=== PATIENT | male | born 1990 | race African-American/Black ===

== ENCOUNTER 2016-05-31 11:48 | Emergency (ER) | payer OTHER ==
[~2016-05-31] VITALS: Ht 182.9 cm; Wt 108.9 kg
[2016-05-31] MEDS ORDERED: IV NORMAL SALINE 1000ML BAG 1,000 ML IV ONE (12:30)
[2016-05-31 12:33] LABS: BASO % 0 % (0-3); EOS % 1 % (0-3); HEMATOCRIT 53.5 % (39.0-53.0); HEMOGLOBIN 17.6 g/dL (13.0-17.5); LYMPH # 1.6 x10^3/uL (1.0-4.8); LYMPH % 12 % (24-48); MEAN CORPUSCULAR HEMOGLOBIN 29 pg (25-35); MEAN CORPUSCULAR HGB CONC 33 g/dL (31-37); MEAN CORPUSCULAR VOLUME 89 fL (79-100); MONO % 8 % (0-9); NEUT % 79 % (31-73); PLATELET COUNT 229 x10^3/uL (140-400); RED BLOOD COUNT 6.04 x10^6/uL (4.30-5.70); RED CELL DISTRIBUTION WIDTH 12.9 % (11.5-14.5); WHITE BLOOD COUNT 13.7 x10^3/uL (4.0-11.0)
--- NOTE | 2016-05-31 12:39 | PHYS DOC ---
Past Medical History Past Medical History: No Pertinent History Past Surgical History: No Surgical History Additional Information: 5 cigarettes daily Alcohol Use: None Drug Use: None Adult General Chief Complaint Chief Complaint: NAUSEA/VOMITING/DIARRHA HPI HPI 26-year-old male who's had some nausea and vomiting with diarrhea as well for the last 2-3 days. Patient states he has not really had a meal since Tuesday night. He states he has not been able to keep anything down. He states several his coworkers had similar symptoms. He denies any history of health problems. He does not appear to be in any acute distress Review of Systems Review of Systems Constitutional: Denies fever or chills [] Eyes: Denies change in visual acuity, redness, or eye pain [] HENT: Denies nasal congestion or sore throat [] Respiratory: Denies cough or shortness of breath [] Cardiovascular: No additional information not addressed in HPI [] GI: Denies abdominal pain, has nausea, has vomiting, bloody stools, denies diarrhea [] : Denies dysuria or hematuria [] Musculoskeletal: Denies back pain or joint pain [] Integument: Denies rash or skin lesions [] Neurologic: Denies headache, focal weakness or sensory changes [] Endocrine: Denies polyuria or polydipsia [] Current Medications Current Medications Current Medications Medications (Trade) Dose Ordered Sig/Rachael Start Time Stop Time Status Last Admin Dose Admin Ketorolac Tromethamine (Toradol) 30 mg 1X ONCE 05/31/16 12:45 05/31/16 12:46 DC 05/31/16 12:34 30 MG Ondansetron HCl (Zofran) 4 mg 1X ONCE 05/31/16 12:45 05/31/16 12:46 DC 05/31/16 12:35 4 MG Sodium Chloride (Iv Sodium Chloride 0.9% 1000ml Bag) 1,000 ml @ 1,000 mls/hr 1X ONCE 05/31/16 12:30 05/31/16 13:29 05/31/16 12:35 1,000 MLS/HR Allergies Allergies Allergies Coded Allergies Type Severity Reaction Last Updated Verified No Known Drug Allergies 05/31/16 No Physical Exam Physical Exam Constitutional: Well developed, well nourished, no acute distress, non-toxic appearance. [] HENT: Normocephalic, atraumatic, bilateral external ears normal, oropharynx moist, no oral exudates, nose normal. [] Eyes: PERRLA, EOMI, conjunctiva normal, no discharge. [] Neck: Normal range of motion, no tenderness, supple, no stridor. [] Cardiovascular:Heart rate regular rhythm, no murmur [] Lungs & Thorax: Bilateral breath sounds clear to auscultation [] Abdomen: Bowel sounds normal, soft, no tenderness, no masses, no pulsatile masses. [] Skin: Warm, dry, no erythema, no rash. [] Back: No tenderness, no CVA tenderness. [] Extremities: No tenderness, no cyanosis, no clubbing, ROM intact, no edema. [] Neurologic: Alert and oriented X 3, normal motor function, normal sensory function, no focal deficits noted. [] Psychologic: Affect normal, judgement normal, mood normal. [] Current Patient Data Vital Signs Vital Signs Date Time Temp Pulse Resp B/P Pulse Ox O2 Delivery O2 Flow Rate FiO2 05/31/16 12:27 83 133/81 Room Air 05/31/16 11:57 98.0 16 99 98.0 Lab Values Laboratory Tests Test 05/31/16 12:00 White Blood Count 13.7x10^3/uL (4.0-11.0) H Red Blood Count 6.04x10^6/uL (4.30-5.70) H Hemoglobin 17.6g/dL (13.0-17.5) H Hematocrit 53.5% (39.0-53.0) H Mean Corpuscular Volume 89fL (79-100) Mean Corpuscular Hemoglobin 29pg (25-35) Mean Corpuscular Hemoglobin Concent 33g/dL (31-37) Red Cell Distribution Width 12.9% (11.5-14.5) Platelet Count 229x10^3/uL (140-400) Neutrophils (%) (Auto) 79% (31-73) H Lymphocytes (%) (Auto) 12% (24-48) L Monocytes (%) (Auto) 8% (0-9) Eosinophils (%) (Auto) 1% (0-3) Basophils (%) (Auto) 0% (0-3) Neutrophils # (Auto) 10.8x10^3uL (1.8-7.7) H Lymphocytes # (Auto) 1.6x10^3/uL (1.0-4.8) Monocytes # (Auto) 1.1x10^3/uL (0.0-1.1) Eosinophils # (Auto) 0.1x10^3/uL (0.0-0.7) Basophils # (Auto) 0.0x10^3/uL (0.0-0.2) Sodium Level 141mmol/L (136-145) Potassium Level 4.1mmol/L (3.5-5.1) Chloride Level 102mmol/L (98-107) Carbon Dioxide Level 30mmol/L (21-32) Anion Gap 9 (6-14) Blood Urea Nitrogen 13mg/dL (8-26) Creatinine 1.1mg/dL (0.7-1.3) Estimated GFR (Cockcroft-Gault) 98.7 Glucose Level 99mg/dL (70-99) Calcium Level 9.7mg/dL (8.5-10.1) Laboratory Tests 05/31/16 12:00 Laboratory Tests 05/31/16 12:00 EKG EKG [] Radiology/Procedures Radiology/Procedures [] Course & Med Decision Making Course & Med Decision Making Pertinent Labs and Imaging studies reviewed. (See chart for details) Otherwise healthy 26-year-old male will be given an IV fluid bolus and a dose of Zofran and Toradol. He is likely exhibiting symptoms of an ongoing gastroenteritis. If the patient is able to tolerate oral fluids he will be discharged with Zofran and close follow-up. Upon my final reassessment, the patient has no vital sign abnormalities and feels improved after fluid bolus and Zofran and Toradol. I'll be discharging him home Zofran prescription instruction remain well-hydrated at home. I believe his symptoms are likely related to gastritis. His laboratory workup is unremarkable. Dragon Disclaimer Dragon Disclaimer This electronic medical record was generated, in whole or in part, using a voice recognition dictation system. Departure Departure Impression: Primary Impression: Nausea & vomiting Disposition: HOME, SELF-CARE Admitting Physician: Other Condition: STABLE Referrals: NO PCP (PCP) Patient Instructions: Nausea and Vomiting, [id number] Additional Instructions: Please follow up with your primary doctor in the next 2-3 days for your recent nausea and vomiting. Continue to drink plenty of fluids and stay well hydrated. Return to the ER if you develop any worsening of your symptoms. Scripts Ondansetron Hcl (Zofran)4 Mg Tablet4 Mg PO BID PRN NAUSEA/VOMITING #10 TAB Prov:HEIDI CAIN DO 05/31/16 HEIDI CAIN DO May 31, 2016 12:39
[2016-05-31 12:44] LABS: CALCIUM 9.7 mg/dL (8.5-10.1); CREATININE 1.1 mg/dL (0.7-1.3); GFR 98.7; POTASSIUM 4.1 mmol/L (3.5-5.1)
[2016-05-31] MEDS ORDERED: KETOROLAC TROMETHAMINE 30 MG/ML SYRINGE. IV ONE (12:45)
[2016-05-31] MEDS ORDERED: ONDANSETRON PF 4 MG/2 ML VIAL. IV ONE (12:45)
[2016-05-31 13:27] VITALS: BP 124/69
[2016-05-31] MEDS ORDERED: ONDA4TAB7 PO (13:28)
== END 2016-05-31 13:45 | disposition home or self-care (01) ==
LOC: ER 11:48
DX: R11.2 Nausea with vomiting, unspecified (principal); R19.7 Diarrhea, unspecified; F17.210 Nicotine dependence, cigarettes, uncomplicated
CPT/HCPCS: 36415; 80048; 85027; 96361; 96374; 96375; 99284; J1885; J2405; J7030

== ENCOUNTER 2016-08-14 15:02 | Emergency (ER) | payer OTHER ==
[~2016-08-14] VITALS: Ht 182.9 cm; Wt 108.9 kg
[~2016-08-14 15:02] MED LIST: ONDA4TAB7 PO
[2016-08-14] MEDS ORDERED: DIPHTH,PERTUSS(ACELL),TET TOX 0.5 ML DISP.SYRIN. VAX IM ONE (15:30)
[2016-08-14 15:34] LABS: BASO % 1 % (0-3); EOS % 3 % (0-3); HEMATOCRIT 47.8 % (39.0-53.0); LYMPH # 3.6 x10^3/uL (1.0-4.8); LYMPH % 43 % (24-48); MEAN CORPUSCULAR HEMOGLOBIN 30 pg (25-35); MEAN CORPUSCULAR HGB CONC 33 g/dL (31-37); MEAN CORPUSCULAR VOLUME 89 fL (79-100); MONO % 8 % (0-9); NEUT % 46 % (31-73); PLATELET COUNT 203 x10^3/uL (140-400); RED BLOOD COUNT 5.39 x10^6/uL (4.30-5.70); RED CELL DISTRIBUTION WIDTH 12.9 % (11.5-14.5); WHITE BLOOD COUNT 8.5 x10^3/uL (4.0-11.0)
[2016-08-14 15:43] LABS: CALCIUM 8.9 mg/dL (8.5-10.1); CREATININE 1.2 mg/dL (0.7-1.3); GFR 89.3; POTASSIUM 3.5 mmol/L (3.5-5.1)
[2016-08-14 15:47] LABS: PROTHROMBIN TIME PATIENT 12.8 SEC (11.7-14.0)
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
[2016-08-14 16:31] VITALS: BP 156/84
[2016-08-14] MEDS ORDERED: HYDR-2758 PO (16:33)
== END 2016-08-14 16:35 | disposition home or self-care (01) ==
LOC: ER 15:02
DX: S00.83XA Contusion of other part of head, initial encounter (principal); S00.11XA Contusion of right eyelid and periocular area, initial encounter; S09.90XA Unspecified injury of head, initial encounter; Y04.0XXA Assault by unarmed brawl or fight, initial encounter; Y93.89 Activity, other specified; Y92.89 Other specified places as the place of occurrence of the external cause; Y99.8 Other external cause status
CPT/HCPCS: 36415; 70450; 70486; 72125; 80048; 85027; 85610; 85730; 99285-25

== ENCOUNTER 2016-08-18 04:54 | Emergency (ER) | payer OTHER ==
[~2016-08-18] VITALS: Ht 182.9 cm; Wt 108.9 kg
[~2016-08-18 04:54] MED LIST changes: +HYDR-2758 PO
[2016-08-18 05:03] VITALS: BP 167/91
[2016-08-18] MEDS ORDERED: IBUP-1007 PO (05:12)
[2016-08-18] MEDS ORDERED: TRAM-48 PO (05:12)
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
[2016-08-18] MEDS ORDERED: IBUPROFEN 600 MG TABLET. PO ONE (05:15)
[2016-08-18] MEDS ORDERED: traMADol 50 MG TABLET PO ONE (05:15)
== END 2016-08-18 05:17 | disposition home or self-care (01) ==
LOC: ER 04:54
DX: S06.0X1A Concussion with loss of consciousness of 30 minutes or less, initial encounter (principal); R11.10 Vomiting, unspecified; X58.XXXA Exposure to other specified factors, initial encounter; Y93.89 Activity, other specified; Y99.8 Other external cause status; Y92.89 Other specified places as the place of occurrence of the external cause
CPT/HCPCS: 99283

== ENCOUNTER 2017-05-30 08:11 | Emergency (ER) | payer OTHER ==
[2017-05-30] MEDS: cefTRIAXone IM 250 MG VIAL IM (09:14)
[2017-05-30] MEDS: metroNIDAZOLE 500 MG TABLET PO (09:14)
[2017-05-30] MEDS: AZITHROMYCIN 250 MG TABLET. PO (09:14)
[2017-05-30 09:27] LABS: BILIRUBIN,URINE SMALL (NEG); CLARITY,URINE CLEAR; COLOR,URINE AMBER; GLUCOSE,URINE NEGATIVE (NEG); NITRITE,URINE NEGATIVE (NEG); PROTEIN,URINE 100 mg/dL (NEG-TRACE)
[2017-05-30 09:42] LABS: BACTERIA,URINE FEW /HPF (0-FEW); WBC,URINE >40 /HPF (0-4)
== END 2017-05-30 09:40 | disposition home or self-care (01) ==
LOC: ER 08:11
DX: H10.89 Other conjunctivitis (principal); Z20.2 Contact with and (suspected) exposure to infections with a predominantly sexual mode of transmission
CPT/HCPCS: 81001; 87491; 87591; 96372; 99284-25; J0696; Q0144